=== PATIENT | female | born 1935 | race Caucasian/White ===

== ENCOUNTER 2017-11-14 11:35 | Observation (INO) | payer MEDICARE ==
[~2017-11-14] VITALS: Ht 160 cm; Wt 87.0 kg
[~2017-11-14 11:35] MED LIST: ATOR10 PO; ERGO50000 PO; FABB PO; FURO40 PO; LEVSOD100 PO; LEVSOD50 PO; METO25 PO; ONDA4ODT MM; PROACE100 PO; TRAM50 PO; WARF2 PO; WARF3 PO
[2017-11-14] MEDS ORDERED: CETI5 PO (12:44)
[2017-11-14 12:45] LABS: BASOPHILS ABSOLUTE AUTO 0.04 K/mm3 (0.00-0.23); BASOPHILS PERCENT AUTO 1 % (0-2); EOSINOPHILS ABSOLUTE AUTO 0.05 K/mm3 (0.00-0.68); EOSINOPHILS PERCENT AUTO 1 % (0-6); Hematocrit 42.9 % (33.0-51.0); Hemoglobin 14.2 g/dL (11.5-16.0); IMMATURE GRAN ABSOLUTE AUTO 0.02 K/mm3 (0.00-0.10); IMMATURE GRAN PERCENT AUTO 0 % (0-1); LYMPHOCYTES ABSOLUTE AUTO 1.51 K/mm3 (0.84-5.20); LYMPHOCYTES PERCENT AUTO 30 % (21-46); MONOCYTES ABSOLUTE AUTO 0.36 K/mm3 (0.16-1.47); MONOCYTES PERCENT AUTO 7 % (4-13); Mean Corpuscular HGB 28.1 pg (26.0-34.0); Mean Corpuscular HGB Conc 33.1 g/dL (31.5-36.5); Mean Corpuscular Volume 85 fL (80-100); Mean Platelet Volume 9.7 fL (9.1-12.4); NEUTROPHILS ABSOLUTE AUTO 3.02 K/mm3 (1.96-9.15); NEUTROPHILS PERCENT AUTO 60 % (41-73); Platelet Count 205 K/mm3 (150-400); RDW Coefficient Variation 14.4 % (11.7-14.2); RDW Standard Deviation 44.8 fL (35.1-46.3); Red Blood Cell Count 5.05 M/mm3 (3.80-5.20)
[2017-11-14] MEDS ORDERED: Jantoven2 MG PO (12:45)
[2017-11-14] MEDS ORDERED: VIRT-GARD TABL1 EACH PO (12:46)
[2017-11-14] MEDS ORDERED: MONT10T PO (12:47)
[2017-11-14 13:02] LABS: International Normalized Ratio 2.8; Prothrombin Time Results 27.2 Sec (9.7-11.5)
[2017-11-14 13:09] LABS: Alanine Aminotransfer (ALT/SGP 45 U/L (12-78); Albumin, Blood 3.7 g/dL (3.4-5.0); Albumin/Globulin Ratio 0.9 (0.8-1.8); Alk Phos 102 U/L (50-136); Anion Gap 10 mmol/L (6-16); Aspartate Aminotrans (AST/SGOT 30 U/L (12-37); Bilirubin, Total 0.4 mg/dL (0.1-1.0); Blood Urea Nitrogen 13 mg/dL (8-24); Bun/Creatinine Ratio 13.8 (12.0-20.0); CO2, Blood 26 mmol/L (21-32); Chloride, Blood 104 mmol/L (98-108); Creatinine, Blood 0.95 mg/dL (0.40-1.00); Glomerular Filtration Rate >60 (60-); Glucose, Blood 174 mg/dL (70-99); Potassium, Blood 3.4 mmol/L (3.5-5.5); Sodium, Blood 140 mmol/L (136-145); Total Protein, Blood 7.7 g/dL (6.4-8.2); Troponin I <0.015 ng/mL (0.000-0.040)
[2017-11-15 05:43] LABS: International Normalized Ratio 2.43; Prothrombin Time Results 23.8 Sec (9.7-11.5)
[2017-11-15 06:02] LABS: Bun/Creatinine Ratio 14.6 (12.0-20.0); Calcium, Blood 8.2 mg/dL (8.5-10.1); Creatinine, Blood 1.03 mg/dL (0.40-1.00); Potassium, Blood 3.7 mmol/L (3.5-5.5)
[2017-11-16 05:49] LABS: International Normalized Ratio 2.54; Prothrombin Time Results 24.8 Sec (9.7-11.5)
== END 2017-11-16 13:41 | disposition home or self-care (01) ==
LOC: ER 11:35 → MEDS 11:36 → ENPENDDIS 11-16 12:20 → MEDS 11-16 13:41
PROVIDERS: Internal Medicine Endocrinology, Diabetes & Metabolism; Physician Assistant
DX: R42 Dizziness and giddiness (principal); I49.8 Other specified cardiac arrhythmias; I10 Essential (primary) hypertension; E03.9 Hypothyroidism, unspecified; J30.9 Allergic rhinitis, unspecified; I74.9 Embolism and thrombosis of unspecified artery; E87.6 Hypokalemia; R00.1 Bradycardia, unspecified; M48.061 Spinal stenosis, lumbar region without neurogenic claudication; E78.5 Hyperlipidemia, unspecified; M54.16 Radiculopathy, lumbar region; Z96.653 Presence of artificial knee joint, bilateral; Z90.49 Acquired absence of other specified parts of digestive tract; Z90.710 Acquired absence of both cervix and uterus
CPT/HCPCS: 36415; 70551; 80048; 80053; 84484; 85025; 85610; 93005; 93010; 93306; 93880; 96360; 96361; 97116; 97162; 99285-25; G0378; G8978; G8979; J7030

== ENCOUNTER → 2019-11-19 | Outpatient (CLI) | payer MEDICARE ==
[~2019-11-19] MED LIST changes: +CEPH500 PO; +CETI5 PO; +Jantoven2 MG PO; +MECL12.5 PO; +MONT10T PO; +VIRT-GARD TABL1 EACH PO
[2019-11-19 09:39] LABS: BASOPHILS ABSOLUTE AUTO 0.04 K/mm3 (0.00-0.23); BASOPHILS PERCENT AUTO 1 % (0-2); EOSINOPHILS ABSOLUTE AUTO 0.13 K/mm3 (0.00-0.68); EOSINOPHILS PERCENT AUTO 2 % (0-6); Hematocrit 31.6 % (33.0-51.0); Hemoglobin 9.9 g/dL (11.5-16.0); IMMATURE GRAN ABSOLUTE AUTO 0.02 K/mm3 (0.00-0.10); IMMATURE GRAN PERCENT AUTO 0 % (0-1); LYMPHOCYTES ABSOLUTE AUTO 2.22 K/mm3 (0.84-5.20); LYMPHOCYTES PERCENT AUTO 36 % (21-46); MONOCYTES ABSOLUTE AUTO 0.63 K/mm3 (0.16-1.47); MONOCYTES PERCENT AUTO 10 % (4-13); Mean Corpuscular HGB 25.2 pg (26.0-34.0); Mean Corpuscular HGB Conc 31.3 g/dL (31.5-36.5); Mean Corpuscular Volume 80 fL (80-100); Mean Platelet Volume 9.5 fL (9.1-12.4); NEUTROPHILS PERCENT AUTO 51 % (41-73); Platelet Count 267 K/mm3 (150-400); RDW Coefficient Variation 15.2 % (11.7-14.2); RDW Standard Deviation 44.7 fL (35.1-46.3); Red Blood Cell Count 3.93 M/mm3 (3.80-5.20); White Blood Cell Count 6.24 K/mm3 (4.00-11.30)
[2019-11-19 09:48] LABS: Albumin, Blood 3.5 g/dL (3.4-5.0); Bilirubin, Total 0.4 mg/dL (0.1-1.0); Bun/Creatinine Ratio 9.5 (12.0-20.0); Creatinine, Blood 1.16 mg/dL (0.40-1.00); Globulin, Blood 3.5 g/dL (2.2-4.0); Potassium, Blood 3.8 mmol/L (3.5-5.5)
== END | disposition home or self-care (01) ==
LOC: LAB EV 09:29 → LAB SHORT 09:29
PROVIDERS: Physician Assistant
DX: I48.91 Unspecified atrial fibrillation (principal); R05 Cough
CPT/HCPCS: 80053; 83880; 85025

== ENCOUNTER 2020-05-23 12:46 | Inpatient (IN) | payer MEDICARE ==
[~2020-05-23] VITALS: Ht 160 cm; Wt 87.7 kg
[~2020-05-23 12:46] MED LIST changes: -ATOR10 PO; +ATOR20 PO; -LEVSOD50 PO; +LEVSOD75 PO; -MECL12.5 PO; +MECL25 PO
[2020-05-23 13:57] LABS: Hematocrit 18.2 % (33.0-51.0); Mean Corpuscular HGB 16.3 pg (26.0-34.0); Mean Corpuscular HGB Conc 25.8 g/dL (31.5-36.5); Mean Corpuscular Volume 63 fL (80-100); Mean Platelet Volume 9.6 fL (9.1-12.4); NRBC ABSOLUTE 0.04 K/mm3 (0.00-0.02); NRBC Auto 0.7 /100 WBC (0.0-0.2); Platelet Count 348 K/mm3 (150-400); RDW Standard Deviation 45.4 fL (35.1-46.3); Red Blood Cell Count 2.89 M/mm3 (3.80-5.20); White Blood Cell Count 6.06 K/mm3 (4.00-11.30)
[2020-05-23 14:06] LABS: Percent Saturation 1.7 % (15.0-50.0)
[2020-05-23 14:38] LABS: Hemoglobin 4.7 g/dL (11.5-16.0)
[2020-05-23 14:42] LABS: BASOPHILS ABSOLUTE MAN 0.06 K/mm3 (0.00-0.23); BASOPHILS PERCENT MAN 1 % (0-2); EOSINOPHILS PERCENT MAN 0 % (0-6); LYMPHOCYTES ABSOLUTE MAN 1.87 K/mm3 (0.84-5.20); LYMPHOCYTES PERCENT MAN 31 % (21-46); MONOCYTES ABSOLUTE MAN 0.36 K/mm3 (0.16-1.47); MONOCYTES PERCENT MAN 6 % (4-13); NEUTROPHILS ABSOLUTE MAN 3.75 K/mm3 (1.96-9.15); SEG NEUTROPHILS PERCENT MAN 62 % (41-73); TOTAL CELLS COUNTED 100
[2020-05-23 21:05] LABS: Influenza A, PCR NEGATIVE (NEGATIVE); Influenza B, PCR NEGATIVE (NEGATIVE); Resp Syncytial Virus, PCR NEGATIVE (NEGATIVE); SARS-Cov-2 (COVID-19) PCR, MMC NEGATIVE (NEGATIVE)
[2020-05-23 21:12] LABS: Hematocrit 27.7 % (33.0-51.0); Mean Corpuscular HGB 20.3 pg (26.0-34.0); Mean Corpuscular HGB Conc 28.9 g/dL (31.5-36.5); Mean Platelet Volume 8.9 fL (9.1-12.4); NRBC ABSOLUTE 0.05 K/mm3 (0.00-0.02); NRBC Auto 0.7 /100 WBC (0.0-0.2); Platelet Count 257 K/mm3 (150-400); RDW Coefficient Variation 25.2 % (11.7-14.2); Red Blood Cell Count 3.95 M/mm3 (3.80-5.20); White Blood Cell Count 7.67 K/mm3 (4.00-11.30)
[2020-05-23 21:37] LABS: Mean Corpuscular Volume 70 fL (80-100)
--- NOTE | 2020-05-23 22:52 | NUR ---
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 Recieved blood transfusion 2 units PRBC in ER & vit K. Ferrlecit IV infusion & IV potassium. NPO, GI consult ordered noted called by MD for scope. Await admission
[2020-05-24 05:32] LABS: Blood Urea Nitrogen 14 mg/dL (8-24); Bun/Creatinine Ratio 15.5 (12.0-20.0); CO2, Blood 26 mmol/L (21-32); Calcium, Blood 8.6 mg/dL (8.5-10.1); Glomerular Filtration Rate >60 (60-); Glucose, Blood 126 mg/dL (70-99); Potassium, Blood 3.7 mmol/L (3.5-5.5); Sodium, Blood 141 mmol/L (136-145)
--- NOTE | 2020-05-24 05:47 | NUR ---
elderly Female with hx of anal cancer 20 years ago on coumadin with recent changes in doses for higher INR desired had critalcally low HBG 4.7 & HCT 18.2 has 2 units PRBC infused in ER & Vit k.Ferritin IV as well as 40 meq KCL. She is pleasant & up with min assist to BSC multiple times. H & H lower than 8 at 0100. Has GI consult ordered. NPO pending possible endoscopy .
[2020-05-24 05:54] LABS: International Normalized Ratio 1.6; Prothrombin Time Results 16.7 Sec (9.7-11.5)
[2020-05-24 05:56] LABS: BASOPHILS ABSOLUTE AUTO 0.06 K/mm3 (0.00-0.23); BASOPHILS PERCENT AUTO 1 % (0-2); EOSINOPHILS ABSOLUTE AUTO 0.15 K/mm3 (0.00-0.68); EOSINOPHILS PERCENT AUTO 2 % (0-6); Hematocrit 25.2 % (33.0-51.0); Hemoglobin 7.4 g/dL (11.5-16.0); IMMATURE GRAN ABSOLUTE AUTO 0.03 K/mm3 (0.00-0.10); IMMATURE GRAN PERCENT AUTO 0 % (0-1); LYMPHOCYTES ABSOLUTE AUTO 1.49 K/mm3 (0.84-5.20); LYMPHOCYTES PERCENT AUTO 18 % (21-46); MONOCYTES ABSOLUTE AUTO 0.78 K/mm3 (0.16-1.47); MONOCYTES PERCENT AUTO 10 % (4-13); Mean Corpuscular HGB 20.1 pg (26.0-34.0); Mean Corpuscular HGB Conc 29.4 g/dL (31.5-36.5); Mean Corpuscular Volume 69 fL (80-100); Mean Platelet Volume 8.9 fL (9.1-12.4); NEUTROPHILS ABSOLUTE AUTO 5.65 K/mm3 (1.96-9.15); NEUTROPHILS PERCENT AUTO 69 % (41-73); NRBC ABSOLUTE 0.06 K/mm3 (0.00-0.02); NRBC Auto 0.7 /100 WBC (0.0-0.2); Platelet Count 279 K/mm3 (150-400); RDW Coefficient Variation 24.8 % (11.7-14.2); RDW Standard Deviation 60.1 fL (35.1-46.3); Red Blood Cell Count 3.68 M/mm3 (3.80-5.20); White Blood Cell Count 8.16 K/mm3 (4.00-11.30)
[2020-05-24 06:01] LABS: Anion Gap 5 mmol/L (6-16); Chloride, Blood 110 mmol/L (98-108)
--- NOTE | 2020-05-24 08:43 | NUR ---
CARE COORDINATION REFERRAL - ADMIT: 05/23/20 DISCHARGE: DX: GI BLEED CC: DAVID MINH CALL: RESIDENCE: HOME WITH SPOUSE CAREGIVER: , RAQUEL [phone] DX: HTN, GERD, COLON CA, ANXIETY, SEE LIST DME: NONE CCM: NONE HOME HEALTH: [facility]- [facility] SUMMARY: ADMIT: 05/23/20
[2020-05-24 09:02] LABS: Hematocrit 25.8 % (33.0-51.0); Hemoglobin 7.7 g/dL (11.5-16.0)
[2020-05-24] MEDS ORDERED: LOSA50 PO (10:43)
[2020-05-24] MEDS ORDERED: FAMO40 PO (10:44)
[2020-05-24] MEDS ORDERED: AMLO5 PO (10:47)
[2020-05-24] MEDS ORDERED: IRBESARTAN300 MG PO (10:48)
[2020-05-24] MEDS ORDERED: HYDROCODONE CO120 ML PO (10:50)
[2020-05-24] MEDS ORDERED: CETI5 PO (10:58)
[2020-05-24] MEDS ORDERED: HYDCHL25 PO (11:00)
[2020-05-24] MEDS ORDERED: POTCHL20ER PO (11:01)
[2020-05-24] MEDS ORDERED: [UNRECOGNIZED DRUG - CODE] PO (11:03)
--- NOTE | 2020-05-24 12:33 | NUR ---
DR AGUILERA IN TO SEE PT AND THAN DR CONNELL IN TO SEE PT JUST AFTERWARDS. PROTONIX STOPPED AND STARTED ON OMPERAZOLE BID. DR DEVINE REPORTS NOT NEED FOR GUAIAC HE DID A RECTAL EXAM. ANUSOL SUPP ORDERED. PER DR DEVINE PT CAN BE STARTED ON REGULAR DIET IF PT AND SPOUSE DECIDE ON NO COLONOSCOPY.
--- NOTE | 2020-05-24 15:05 | NUR ---
PER PT, SHE SPOKE WITH REGARDING COLONOSCOPY AND HUSBANDS REPORTS IT IS UP TO THE PT TO MAKE THAT DECISION AND SHE DOES NOT WANT TO HAVE A COLONOSCOPY. WILL START ON REGULAR DIET PER DR DAI.
--- NOTE | 2020-05-24 16:48 | NUR ---
SHIFT SUMMARY- PT A/OX3, PT DENIES ANY COMPLAINTS. SBA UP TO BATHROOM. LS CLEAR, ON RA. PT PALE. 1+ BLE EDEMA. PT NOTED TO HAVE BROWN STOOLS WITH SOME PINK MUCOUS PER SCAFFOLD WORKER. GI CONSULTED AND RECTAL EXAM DONE WITH NOTED HEMORRHOIDS, ANUSOL SUPP ORDERED. PT DECLINED A COLONOSCOPY AND STARTED BACK OF REGULAR DIET AND COUMADIN. PT TOLERATING PO. HGB STABLE AT 7.7. POSS D/C HOME TOMORROW. NO OTHER ACUTE CHANGES THIS SHIFT.
--- NOTE | 2020-05-25 05:01 | NUR ---
SHIFT SUMMARY PATIENT HAD NO ACUTE CHANGES OBSERVED. AXOX 3 AND SBA TO BATHROOM. PIVS REMAIN INTACT. VSS/AFEBRILE. DENIES PAIN, SOB, AND N/V. ANUSOL HC SUPPOSITORY GIVEN PER SCHEDULE EMAR. IV FERRLECIT INFUSED. COOPERATIVE WITH CARE. CALL LIGHT IN REACH. BED IN LOWEST POSITION. WILL CONTINUE TO MONITOR UNTIL DAY SHIFT NURSE ASSUMES CARE.
[2020-05-25 05:34] LABS: BASOPHILS ABSOLUTE AUTO 0.06 K/mm3 (0.00-0.23); BASOPHILS PERCENT AUTO 1 % (0-2); EOSINOPHILS ABSOLUTE AUTO 0.25 K/mm3 (0.00-0.68); EOSINOPHILS PERCENT AUTO 3 % (0-6); Hematocrit 23.8 % (33.0-51.0); Hemoglobin 6.9 g/dL (11.5-16.0); IMMATURE GRAN ABSOLUTE AUTO 0.07 K/mm3 (0.00-0.10); IMMATURE GRAN PERCENT AUTO 1 % (0-1); LYMPHOCYTES ABSOLUTE AUTO 1.69 K/mm3 (0.84-5.20); LYMPHOCYTES PERCENT AUTO 23 % (21-46); MONOCYTES ABSOLUTE AUTO 0.71 K/mm3 (0.16-1.47); MONOCYTES PERCENT AUTO 10 % (4-13); Mean Corpuscular HGB 20.1 pg (26.0-34.0); Mean Corpuscular Volume 69 fL (80-100); Mean Platelet Volume 9.2 fL (9.1-12.4); NEUTROPHILS ABSOLUTE AUTO 4.63 K/mm3 (1.96-9.15); NEUTROPHILS PERCENT AUTO 63 % (41-73); NRBC Auto 1.3 /100 WBC (0.0-0.2); Platelet Count 269 K/mm3 (150-400); RDW Coefficient Variation 25.5 % (11.7-14.2); RDW Standard Deviation 62.5 fL (35.1-46.3); Red Blood Cell Count 3.44 M/mm3 (3.80-5.20); White Blood Cell Count 7.41 K/mm3 (4.00-11.30)
[2020-05-25 05:47] LABS: International Normalized Ratio 1.16; Prothrombin Time Results 12.3 Sec (9.7-11.5)
[2020-05-25 06:16] LABS: Albumin, Blood 2.9 g/dL (3.4-5.0); Albumin/Globulin Ratio 0.9 (0.8-1.8); Bilirubin, Total 0.8 mg/dL (0.1-1.0); Bun/Creatinine Ratio 8.7 (12.0-20.0); Creatinine, Blood 1.03 mg/dL (0.40-1.00); Globulin, Blood 3.1 g/dL (2.2-4.0); Potassium, Blood 3.4 mmol/L (3.5-5.5)
--- NOTE | 2020-05-25 18:38 | NUR ---
SHIFT SUMMARY PT HAS HAD NO COMPLAINTS THIS SHIFT. PT UP IN ROOM INDEPENDENTLY. NO COMPLAINTS OF DIZZINESS. PT HAS A HAD A GOOD APPETITE THIS SHIFT. STARTED ON CLEAR LIQUIDS AFTER LUNCH FOR COLONOSCOPY TOMORROW. PT RECEIVING ONE UNIT OF PRBC FOR HGB 6.9 AND IS INFUSING AT THIS TIME. VITALS WNL. NO ACUTE CHANGES AT THIS TIME. CALL LIGHT IN REACH. WILL CONTINUE TO MONITOR AND REPORT TO ONCOMING RN.
--- NOTE | 2020-05-25 22:08 | NUR ---
[place] STARTED THIS SHIFT. PATIENT HAVING MULTIPLE BM'S. IV IRON INFUSED. CALL LIGHT IN REACH.
--- NOTE | 2020-05-25 22:26 | NUR ---
SUMMARY: Admit: 05/23/20 05/25/[address] Stark, patient does not want colonoscopy, resume clear liquids to full diet. No Eta for discharge from Dr Johnson at this time. cp
[2020-05-26 04:50] LABS: BASOPHILS ABSOLUTE AUTO 0.06 K/mm3 (0.00-0.23); BASOPHILS PERCENT AUTO 1 % (0-2); EOSINOPHILS ABSOLUTE AUTO 0.21 K/mm3 (0.00-0.68); EOSINOPHILS PERCENT AUTO 3 % (0-6); Hematocrit 27.3 % (33.0-51.0); Hemoglobin 8.3 g/dL (11.5-16.0); IMMATURE GRAN ABSOLUTE AUTO 0.08 K/mm3 (0.00-0.10); IMMATURE GRAN PERCENT AUTO 1 % (0-1); LYMPHOCYTES ABSOLUTE AUTO 1.87 K/mm3 (0.84-5.20); LYMPHOCYTES PERCENT AUTO 24 % (21-46); MONOCYTES ABSOLUTE AUTO 0.78 K/mm3 (0.16-1.47); MONOCYTES PERCENT AUTO 10 % (4-13); Mean Corpuscular HGB Conc 30.4 g/dL (31.5-36.5); Mean Corpuscular Volume 72 fL (80-100); NEUTROPHILS ABSOLUTE AUTO 4.67 K/mm3 (1.96-9.15); NEUTROPHILS PERCENT AUTO 61 % (41-73); NRBC ABSOLUTE 0.09 K/mm3 (0.00-0.02); NRBC Auto 1.2 /100 WBC (0.0-0.2); Platelet Count 254 K/mm3 (150-400); RDW Coefficient Variation 27.2 % (11.7-14.2); RDW Standard Deviation 67.8 fL (35.1-46.3); Red Blood Cell Count 3.77 M/mm3 (3.80-5.20); White Blood Cell Count 7.67 K/mm3 (4.00-11.30)
--- NOTE | 2020-05-26 04:59 | NUR ---
SHIFT SUMMARY PATIENT HAD NO ACUTE CHANGES OBSERVED. STARTED GOLYTELY BEGINNING OF SHIFT FOR FIRST PART AND COMPLETED WITH MULTIPLE BM'S. AXOX 3 AND SBA TO BSC. VSS/AFEBRILE. DENIES PAIN, SOB, AND N/V. Hgb 8.3 ON AM LABS AFTER ONE UNIT PRBC ON DAY SHIFT. PRIOR Hgb 6.9. NPO AFTER CLEAR BREAKFAST FOR COLONOSCOPY TODAY. COOPERATIVE WITH CARE. WILL START SECOND PART OF GOLYTELY. CALL LIGHT IN REACH. WILL CONTINUE TO MONITOR UNTIL DAY SHIFT NURSE ASSUMES CARE.
[2020-05-26 05:17] LABS: Alanine Aminotransfer (ALT/SGP 26 U/L (12-78); Albumin, Blood 2.9 g/dL (3.4-5.0); Albumin/Globulin Ratio 0.9 (0.8-1.8); Alk Phos 91 U/L (50-136); Anion Gap 7 mmol/L (6-16); Aspartate Aminotrans (AST/SGOT 16 U/L (12-37); Bilirubin, Total 0.7 mg/dL (0.1-1.0); Blood Urea Nitrogen 8 mg/dL (8-24); Bun/Creatinine Ratio 8.5 (12.0-20.0); CO2, Blood 26 mmol/L (21-32); Calcium, Blood 8.7 mg/dL (8.5-10.1); Chloride, Blood 109 mmol/L (98-108); Creatinine, Blood 0.94 mg/dL (0.40-1.00); Globulin, Blood 3.2 g/dL (2.2-4.0); Glomerular Filtration Rate >60 (60-); Glucose, Blood 115 mg/dL (70-99); Potassium, Blood 3.5 mmol/L (3.5-5.5); Sodium, Blood 142 mmol/L (136-145); Total Protein, Blood 6.1 g/dL (6.4-8.2)
--- NOTE | 2020-05-26 16:24 | NUR ---
TRANSFERED CARE TO ERASTO MCMANUS. PT AOX4 AND IS A STANDBY ASSIST TO RESTROOM OR BEDSIDE COMODE. PT HAS DONE HER GOLYTELY AND HAS CLEAR STOOL. WAITING FOR COLONOSCOPY.
--- NOTE | 2020-05-26 17:26 | NUR ---
ISAEL: Admit: 05/23/20 04/28/[address] Johnson, Colonoscopy today, ETA discharge Friday. Leaving abigail letter for her discharge, [facility] will call early next week for follow up appointment.
--- NOTE | 2020-05-26 17:37 | NUR ---
PT TRANSFERED TO [facility] FROM FLOOR VIA [facility]. History, Chart, Medications and Allergies reviewed before start of procedure. Lungs clear T/O to Auscultation. Patient confirms NPO status and agrees with scheduled surgery. Pre-Op teaching done. Pt verbalizes understanding.
--- NOTE | 2020-05-26 17:39 | NUR ---
05/26/20 1739 Marlyn Milligan History, Chart, Medications and Allergies reviewed before start of procedure. Patient confirms NPO status and agrees with scheduled surgery. PATIENT DETERMINED TO BE ASA APPROPRIATE FOR PROPOFOL SEDATION PRIOR TO START OF PROCEDURE BY . 3-LEAD EKG REVIEWED WITH PHYSICIAN PRIOR TO START OF PROCEDURE. MONITOR INTACT WITH CONTINUOUS PULSE OXIMETRY AND INTERMITTENT BP.O2 VIA N/C INTACT THROUGHOUT SEDATION/PROCEDURE.
--- NOTE | 2020-05-27 05:45 | NUR ---
SHIFT SUMMARY: VSS. TEMP 99.1. 02 93-95% ON RA. MAINTENANCE IV FLUIDS INFUSING PER ORDERS. UP W/ 1 ASSIST. AA0X3. CALLS APPROPRIATELY. 1 BLACK FORMED BM. DENIES N/V. ABD SOFT, NON-TENDER, NON-DISTENDED. DENIES PAIN. WCTM.
--- NOTE | 2020-05-27 15:18 | NUR ---
DISCHARGE NOTE PATIENT DISCHARGED TO HOME. PATIENT ALERT AND ORIENTED, COOPERATIVE WITH CARE THIS SHIFT. PATIENT UP WITH STANDBY ASSIST THIS SHIFT. PATIENT DOWN FOR CT PRIOR TO DISCHARGE. IV REMOVED PRIOR TO DISCHARGE. PATIENT DRESSED WITH HELP OF CHARGER OPERATOR HELPER. PATIENT STATES UNDERSTANDING OF DISCHARGE INSTRUCTIONS. PATIENT'S SPOUSE PROVIDING TRANSPORTATION HOME. PATIENT TO VEHICLE BY WHEELCHAIR WITH CHARGER OPERATOR HELPER.
[2020-07-03] MEDS ORDERED: IRBE150 PO (10:40)
[2020-07-10] MEDS ORDERED: ACET325 PO (10:34)
== END 2020-05-27 14:55 | disposition home or self-care (01) | DRG 394 ==
LOC: ER 12:46 → MEDS 12:47 → ERHOLD 12:47 → MEDS 22:50
PROVIDERS: Internal Medicine; Nurse Practitioner Acute Care; Physician Assistant; Student in an Organized Health Care Education/Training Program; ADMIT Internal Medicine
PROC: 30233N1 Transfusion of Nonautologous Red Blood Cells into Peripheral Vein, Percutaneous Approach (ICD-10-PCS; 2020-05-25)
PROC: 0DBL8ZX Excision of Transverse Colon, Via Natural or Artificial Opening Endoscopic, Diagnostic (ICD-10-PCS; principal; 2020-05-26 17:00)
DX: K63.3 Ulcer of intestine (principal); D62 Acute posthemorrhagic anemia; K64.4 Residual hemorrhoidal skin tags; E03.9 Hypothyroidism, unspecified; E78.5 Hyperlipidemia, unspecified; I10 Essential (primary) hypertension; E87.6 Hypokalemia; K63.89 Other specified diseases of intestine; R91.1 Solitary pulmonary nodule; Z86.718 Personal history of other venous thrombosis and embolism; Z85.828 Personal history of other malignant neoplasm of skin; Z20.822 Contact with and (suspected) exposure to COVID-19; Z88.6 Allergy status to analgesic agent; Z79.899 Other long term (current) drug therapy; G89.29 Other chronic pain; K21.9 Gastro-esophageal reflux disease without esophagitis; M54.9 Dorsalgia, unspecified; Z96.653 Presence of artificial knee joint, bilateral; Z87.891 Personal history of nicotine dependence; Z90.710 Acquired absence of both cervix and uterus; Z90.722 Acquired absence of ovaries, bilateral
CPT/HCPCS: 0241U; 36415; 36430; 71260; 74177; 80048; 80053; 82272; 82728; 83540; 83550; 85007; 85014; 85018; 85025; 85027; 85610; 86850; 86900; 86901; 86923; 88305; 93005; 93010; 96365; 96366; 96367; 96368; 96375; 96376; 99285-25; A9270; C9113; G0378; J2405; J2704; J2916; J3430; J3480; J7030; J7050; J7120; P9016; Q9967

== ENCOUNTER → 2021-01-10 | Outpatient (CLI) | payer MEDICARE ==
[~2021-01-10] MED LIST changes: +ACET325 PO; +AMLO5 PO; +FAMO40 PO; +HYDCHL25 PO; +HYDROCODONE CO120 ML PO; +IRBE150 PO; +IRBESARTAN300 MG PO; +LOSA50 PO; +POTCHL20ER PO; +[UNRECOGNIZED DRUG - CODE] PO
[2021-01-10 15:43] LABS: Source, Urine Clean Catch
[2021-01-10 18:04] LABS: Appearance, Urine Clear (Clear); Bilirubin, Urine Neg (Neg); Blood, Urine Neg (Neg); Color, Urine Yellow (P-Yellow); Glucose Qualitative, Urine Neg (Neg); Ketones, Urine Neg (Neg); Leukocyte Esterase, Urine Neg (Neg); Nitrite, Urine Neg (Neg); Protein, Urine Neg (Neg); Urobilinogen, Urine NORM (Normal); pH, Urine 6.5 (5.0-8.0)
== END ==
LOC: LAB SHORT 15:39 → LAB 15:39
PROVIDERS: Internal Medicine
DX: R31.9 Hematuria, unspecified (principal)
CPT/HCPCS: 81003

== ENCOUNTER 2021-05-29 06:42 | Day surgery (SDC) | payer MEDICARE ==
[~2021-05-29] VITALS: Ht 154.9 cm; Wt 86.0 kg
[~2021-05-29 06:42] MED LIST changes: +Coumadin2 MG PO; +HYCODAN 5 MG-1.55 ML PO; +MECL25; +METR500; +NEOM500; +POTA10T PO
--- NOTE | 2021-05-29 08:04 | NUR ---
05/29/21 0804 Gin Hatfield History, Chart, Medications and Allergies reviewed before start of procedure. Patient confirms NPO status and agrees with scheduled surgery. 3-LEAD EKG REVIEWED WITH PHYSICIAN PRIOR TO START OF PROCEDURE. MONITOR INTACT WITH CONTINUOUS PULSE OXIMETRY AND INTERMITTENT BP. PATIENT DETERMINED TO BE ASA APPROPRIATE FOR PROPOFOL SEDATION PRIOR TO START OF PROCEDURE BY DR. CABALLERO. DISCUSSED PREVIOUS SEDATION RECORD AND PLAN TO START SEDATION WITH NON-REBREATHER AT 10L.
--- NOTE | 2021-05-29 09:14 | NUR ---
Patient up to Ambulate independently. Gait steady. Discharge instructions reviewed with patient. Patient verbalizes understanding. Copy given to patient to take home. Discharged via wheelchair to private car for ride home.
== END 2021-05-29 23:50 | disposition home or self-care (01) ==
LOC: ORSCMMR 06:42 → ORD 08:00 → ORSCSDS 08:00 → ORSCMMR 08:00
PROVIDERS: Surgery
PROC: 0DJD8ZZ Inspection of Lower Intestinal Tract, Via Natural or Artificial Opening Endoscopic (ICD-10-PCS; principal; 2021-05-29 08:00)
DX: Z85.038 Personal history of other malignant neoplasm of large intestine (principal); K57.30 Diverticulosis of large intestine without perforation or abscess without bleeding; I48.91 Unspecified atrial fibrillation; I10 Essential (primary) hypertension; E78.5 Hyperlipidemia, unspecified; Z86.010 Personal history of colon polyps; Z86.718 Personal history of other venous thrombosis and embolism; E72.11 Homocystinuria; E03.9 Hypothyroidism, unspecified; Z79.01 Long term (current) use of anticoagulants; Z79.899 Other long term (current) drug therapy
CPT/HCPCS: J2704; J7120

== ENCOUNTER 2022-03-27 14:41 | Emergency (ER) | payer MEDICARE ==
[~2022-03-27] VITALS: Ht 160 cm; Wt 77.1 kg
[2022-03-27 16:05] LABS: BASOPHILS ABSOLUTE AUTO 0.05 K/mm3 (0.00-0.23); BASOPHILS PERCENT AUTO 1 % (0-2); EOSINOPHILS ABSOLUTE AUTO 0.09 K/mm3 (0.00-0.68); EOSINOPHILS PERCENT AUTO 1 % (0-6); Hematocrit 44.4 % (33.0-51.0); Hemoglobin 15.2 g/dL (11.5-16.0); IMMATURE GRAN ABSOLUTE AUTO 0.03 K/mm3 (0.00-0.10); IMMATURE GRAN PERCENT AUTO 0 % (0-1); LYMPHOCYTES ABSOLUTE AUTO 2.64 K/mm3 (0.84-5.20); LYMPHOCYTES PERCENT AUTO 37 % (21-46); MONOCYTES ABSOLUTE AUTO 0.61 K/mm3 (0.16-1.47); MONOCYTES PERCENT AUTO 9 % (4-13); Mean Corpuscular HGB 29.5 pg (26.0-34.0); Mean Corpuscular HGB Conc 34.2 g/dL (31.5-36.5); Mean Corpuscular Volume 86 fL (80-100); NEUTROPHILS ABSOLUTE AUTO 3.76 K/mm3 (1.96-9.15); NEUTROPHILS PERCENT AUTO 52 % (41-73); Platelet Count 211 K/mm3 (150-400); RDW Coefficient Variation 14.2 % (11.7-14.2); RDW Standard Deviation 45.2 fL (35.1-46.3); Red Blood Cell Count 5.15 M/mm3 (3.80-5.20); White Blood Cell Count 7.18 K/mm3 (4.00-11.30)
[2022-03-27 16:30] LABS: Albumin, Blood 3.5 g/dL (3.4-5.0); Albumin/Globulin Ratio 0.9 (0.8-1.8); Bilirubin, Total 0.2 mg/dL (0.1-1.0); Bun/Creatinine Ratio 18.9 (12.0-20.0); Calcium, Blood 9.4 mg/dL (8.5-10.1); Creatinine, Blood 0.79 mg/dL (0.40-1.00); Globulin, Blood 3.9 g/dL (2.2-4.0); Potassium, Blood 3.6 mmol/L (3.5-5.5); Total Protein, Blood 7.4 g/dL (6.4-8.2)
[2022-03-27 16:57] LABS: Source, Urine Straight Cath
[2022-03-27 17:04] LABS: Appearance, Urine Hazy (Clear); Bilirubin, Urine Neg (Neg); Blood, Urine 5+ (Neg); Color, Urine Yellow (P-Yellow); Glucose Qualitative, Urine 1+ (Neg); Ketones, Urine 1+ (Neg); Leukocyte Esterase, Urine 2+ (Neg); Nitrite, Urine Neg (Neg); Protein, Urine 2+ (Neg); Specific Gravity, Urine 1.025 (1.003-1.022); Urobilinogen, Urine NORM (Normal)
[2022-03-27 17:17] LABS: Mucus Light (0-Heavy); Squamous Epithelial Cells Few /hpf (Few)
[2022-03-27 17:18] LABS: Bacteria Mod /hpf
== END 2022-03-27 17:11 | disposition home or self-care (01) ==
LOC: ER 14:41
PROVIDERS: Physician Assistant
DX: R10.9 Unspecified abdominal pain (principal); R07.81 Pleurodynia; I10 Essential (primary) hypertension; Z79.899 Other long term (current) drug therapy; Z79.01 Long term (current) use of anticoagulants; Z88.6 Allergy status to analgesic agent
CPT/HCPCS: 36415; 80053; 81001; 85025; J1885

== ENCOUNTER 2024-03-23 14:08 | Day surgery (SDC) | payer MEDICARE, OTHER ==
[~2024-03-23] VITALS: Ht 157.5 cm; Wt 77.0 kg
[~2024-03-23 14:08] MED LIST changes: +JANTOVEN2 MG PO; +Lactated Ringer's 1,000 ML IV ONE; +SYNTHROID50 MC1 PO; +propofoL 50 ML IV ONE
[2024-03-23] MEDS ORDERED: XARELTO20 MG PO (14:53)
[2024-03-23] MEDS ORDERED: FARXIGA10 MG PO (14:55)
[2024-03-23] MEDS ORDERED: Lactated Ringer's 1,000 ML IV ONE (15:11)
[2024-03-23 18:02] VITALS: BP 147/61
== END 2024-03-23 17:43 | disposition home or self-care (01) ==
LOC: ORSCSDS 14:08
PROVIDERS: Surgery
PROC: 0DBL8ZX Excision of Transverse Colon, Via Natural or Artificial Opening Endoscopic, Diagnostic (ICD-10-PCS; principal; 2024-03-23 15:30)
PROC: 0DBP8ZX Excision of Rectum, Via Natural or Artificial Opening Endoscopic, Diagnostic (ICD-10-PCS; principal; 2024-03-23 15:30)
DX: Z12.11 Encounter for screening for malignant neoplasm of colon (principal); D12.3 Benign neoplasm of transverse colon; K62.1 Rectal polyp; Z85.038 Personal history of other malignant neoplasm of large intestine; Z86.718 Personal history of other venous thrombosis and embolism; Z86.0101 Personal history of adenomatous and serrated colon polyps; I48.91 Unspecified atrial fibrillation; E78.5 Hyperlipidemia, unspecified; E03.9 Hypothyroidism, unspecified; Z79.01 Long term (current) use of anticoagulants; Z79.899 Other long term (current) drug therapy
CPT/HCPCS: 82947; 88305; J2704; J7120

== ENCOUNTER → 2024-07-26 | Outpatient (CLI) | payer MEDICARE, OTHER ==
[~2024-07-26] MED LIST changes: +FARXIGA10 MG PO; -Lactated Ringer's 1,000 ML IV ONE; +XARELTO20 MG PO; -propofoL 50 ML IV ONE
[2024-07-26 20:59] LABS: Creatinine, Urine Random 58.9 mg/dL (27.00-270.00); Microalb/Creat Ratio UR, Rand 19.355 mg/g (0.000-30.000); Microalbumin, Random Urine 11.4 mg/L (0.000-20.000)
== END | disposition home or self-care (01) ==
LOC: LAB SHORT 14:15 → LAB 14:15
PROVIDERS: Internal Medicine
DX: E11.69 Type 2 diabetes mellitus with other specified complication (principal)
CPT/HCPCS: 82043; 82570

== ENCOUNTER → 2025-02-04 | Outpatient (CLI) | payer MEDICARE, OTHER | LOC: LAB SHORT 15:12 → LAB 15:12 | DX: N39.0 Urinary tract infection, site not specified (principal) | CPT/HCPCS: 87077; 87086; 87186 ==

== ENCOUNTER → 2025-02-18 | Outpatient (CLI) | payer MEDICARE, OTHER ==
[2025-02-18 14:06] LABS: BASOPHILS ABSOLUTE AUTO 0.05 K/mm3 (0.00-0.23); BASOPHILS PERCENT AUTO 1 % (0-2); EOSINOPHILS ABSOLUTE AUTO 0.12 K/mm3 (0.00-0.68); EOSINOPHILS PERCENT AUTO 2 % (0-6); Hematocrit 45.9 % (33.0-51.0); Hemoglobin 14.7 g/dL (11.5-16.0); IMMATURE GRAN ABSOLUTE AUTO 0.02 K/mm3 (0.00-0.10); IMMATURE GRAN PERCENT AUTO 0 % (0-1); LYMPHOCYTES ABSOLUTE AUTO 1.45 K/mm3 (0.84-5.20); LYMPHOCYTES PERCENT AUTO 25 % (21-46); MONOCYTES ABSOLUTE AUTO 0.48 K/mm3 (0.16-1.47); MONOCYTES PERCENT AUTO 8 % (4-13); Mean Corpuscular HGB Conc 32.0 g/dL (31.5-36.5); Mean Corpuscular Volume 86 fL (80-100); NEUTROPHILS ABSOLUTE AUTO 3.62 K/mm3 (1.96-9.15); NEUTROPHILS PERCENT AUTO 63 % (41-73); NRBC ABSOLUTE 0.00 K/mm3 (0.00-0.02); NRBC Auto 0.0 /100 WBC (0.0-0.2); Platelet Count 249 K/mm3 (150-400); RDW Coefficient Variation 14.0 % (11.7-14.2); RDW Standard Deviation 44.5 fL (35.1-46.3)
[2025-02-18 14:24] LABS: Alanine Aminotransfer (ALT/SGP 24.0 U/L (12-78); Albumin, Blood 2.6 g/dL (3.4-5.0); Albumin/Globulin Ratio 0.6 (0.8-1.8); Anion Gap 12.0 mmol/L (3-11); Aspartate Aminotrans (AST/SGOT 26.0 U/L (12-37); Bilirubin, Total 0.4 mg/dL (0.1-1.0); Blood Urea Nitrogen 10.0 mg/dL (8-24); CO2, Blood 24.0 mmol/L (21-32); Calcium, Blood 9.0 mg/dL (8.5-10.1); Chloride, Blood 102.0 mmol/L (98-108); Creatinine, Blood 0.84 mg/dL (0.40-1.00); Globulin, Blood 4.4 g/dL (2.2-4.0); Glucose, Blood 110.0 mg/dL (70-99); Potassium, Blood 3.5 mmol/L (3.5-5.5); Sodium, Blood 134.0 mmol/L (136-145); Thyroid Stimulating Hormone 2.66 uIU/mL (0.360-4.800); Total Protein, Blood 7.0 g/dL (6.4-8.2)
== END ==
LOC: LAB SHORT 14:02 → LAB 14:02
PROVIDERS: Student in an Organized Health Care Education/Training Program
DX: R53.83 Other fatigue (principal)
CPT/HCPCS: 80053; 84443; 85025